=== PATIENT | female | born 1975 | race Caucasian/White ===

== ENCOUNTER 2022-09-11 08:39 | Emergency (ER) | payer OTHER ==
[~2022-09-11] VITALS: Ht 157.5 cm; Wt 93.0 kg
[2022-09-11 08:49] VITALS: BP_SYST 159
--- NOTE | 2022-09-11 09:11 | NUR ---
BROUGHT BACK TO BED #5 AND REPORT GIVEN TO JAMAAL
--- NOTE | 2022-09-11 09:13 | NUR ---
C/C SOb and wheezing x 1 week, patient has Hx of Asthma and is Pre-DM. Denies any other medical Hx. Spo2 98% on RA, no acute distress noted. Wheezing in upper and lower lobes present, Patient states she took her Albuteral and Pro-air this am with no relief.
[2022-09-11] MEDS ORDERED: IPRATROPIUM BROM 0.5 MG/2.5 ML VIAL.NEB (ATROVENT) INH ONE (09:15)
[2022-09-11] MEDS ORDERED: ALBUTEROL SULFATE 0.083% 2.5 MG/3 ML VIAL.NEB INH ONE (09:15)
--- NOTE | 2022-09-11 09:15 | NUR ---
MD Guevara at bedside speaking with patient
[2022-09-11] MEDS ORDERED: predniSONE 20 MG TABLET PO ONE (09:30)
--- NOTE | 2022-09-11 09:30 | NUR ---
RT at bedside
--- NOTE | 2022-09-11 09:34 | NUR ---
EKG at bedside
--- NOTE | 2022-09-11 09:36 | NUR ---
Cxr at bedside
--- NOTE | 2022-09-11 10:11 | NUR ---
Covid and FLU swab collected and sent to lab
--- NOTE | 2022-09-11 10:40 | NUR ---
Patient remains stable in no acute distress and or discomfort.
[2022-09-11] MEDS ORDERED: PRED20TA PO (10:44)
[2022-09-11] MEDS ORDERED: ALBMDI INH (10:44)
[2022-09-11 10:53] VITALS: BP_SYST 123
--- NOTE | 2022-09-11 10:55 | NUR ---
Patient given written and verbal discharge instructions and verbalizes understanding. ER MD discussed with patient the results and treatment provided. Patient in stable condition. ID arm band removed. IV catheter removed intact and dressing applied, no active bleeding. Rx given. Patient educated on pain management and to follow up with PMD. Pain Scale 0/10 Opportunity for questions provided and answered. Medication side effect fact sheet provided.
== END 2022-09-11 10:55 | disposition home or self-care (01) ==
LOC: SED 08:39
DX: J45.901 Unspecified asthma with (acute) exacerbation (principal); R05.9 Cough, unspecified; Z88.1 Allergy status to other antibiotic agents; Z79.899 Other long term (current) drug therapy; Z20.822 Contact with and (suspected) exposure to COVID-19
CPT/HCPCS: 36415; 93005; 71045; 94640; 99285; 87804 ×2; 87426; J7512; J7613

== ENCOUNTER 2022-09-15 16:00 | Emergency (ER) | payer OTHER ==
[~2022-09-15] VITALS: Ht 157.5 cm; Wt 93.0 kg
[~2022-09-15 16:00] MED LIST: ALBMDI INH; PRED20TA PO
[2022-09-15 16:08] VITALS: BP_SYST 137
--- NOTE | 2022-09-15 16:10 | NUR ---
Patient triaged and placed in waiting room. VSS and patient appears in no acute distress at this time. Accompanied by SELF, awaiting available bed, and MD notified of need for MSE.
--- NOTE | 2022-09-15 17:35 | NUR ---
ER DR. BROWN EXAMINING PT IN TRIAGE
--- NOTE | 2022-09-15 17:40 | NUR ---
Placed in room 1. Placed on cardiac nurse specialist, blood pressure machine and pulse oximeter. To gown for exam. Side rails up.
[2022-09-15] MEDS ORDERED: IPRATROPIUM BROM 0.5 MG/2.5 ML VIAL.NEB (ATROVENT) INH ONE (17:45)
[2022-09-15] MEDS ORDERED: ALBUTEROL SULFATE 0.083% 2.5 MG/3 ML VIAL.NEB INH ONE (17:45)
--- NOTE | 2022-09-15 17:45 | NUR ---
RT AT THE BEDSIDE
[2022-09-15] MEDS ORDERED: ZIT250 PO (18:18)
[2022-09-15 18:51] VITALS: BP_SYST 137
--- NOTE | 2022-09-15 18:52 | NUR ---
Patient given written and verbal discharge instructions and verbalizes understanding. ER MD discussed with patient the results and treatment provided. Patient in stable condition. ID arm band removed. Rx of ZITHROMAX given. Patient educated on pain management and to follow up with PMD. Pain Scale 0/10. Opportunity for questions provided and answered. Medication side effect fact sheet provided.
== END 2022-09-15 18:51 | disposition home or self-care (01) ==
LOC: SED 16:00
DX: J45.909 Unspecified asthma, uncomplicated (principal); R05.9 Cough, unspecified; R06.02 Shortness of breath; R51.9 Headache, unspecified; Z88.1 Allergy status to other antibiotic agents; Z79.899 Other long term (current) drug therapy
CPT/HCPCS: 71045; 94640; 99283; J7613

== ENCOUNTER 2022-11-29 09:00 | Outpatient (CLI) | payer OTHER ==
[~2022-11-29 09:00] MED LIST changes: +ZIT250 PO
[2022-11-29 10:26] LABS: BASOPHILS % (AUTO) 0.4 % (0.0-2.0); EOSINOPHILS # (AUTO) 0.4 K/uL (0.0-0.4); EOSINOPHILS % (AUTO) 5.6 % (0.0-4.0); HEMATOCRIT 36.1 % (36-48); HEMOGLOBIN 12.2 g/dL (12.0-16.0); LYMPHOCYTES # (AUTO) 2.6 K/uL (1.0-5.5); LYMPHOCYTES % (AUTO) 36.4 % (20.5-51.5); MEAN CORPUSCULAR HEMOGLOBIN 31 pg (27-31); MEAN CORPUSCULAR HGB CONC 34 % (32-36); MEAN CORPUSCULAR VOLUME 91 fL (79.0-98.0); MONOCYTES # (AUTO) 0.5 K/uL (0.0-1.0); MONOCYTES % (AUTO) 6.4 % (1.7-9.3); NEUTROPHILS # (AUTO) 3.6 K/uL (1.8-7.7); NEUTROPHILS % (AUTO) 51.2 % (40.0-70.0); PLATELET COUNT (AUTO) 340 K/uL (130-430); RED BLOOD CELL COUNT(AUTO) 3.99 MIL/uL (4.2-6.2); RED CELL DISTRIBUTION WIDTH 13.3 % (9.0-15.0); WHITE BLOOD COUNT (AUTO) 7.1 K/uL (4.8-10.8)
[2022-11-29 10:50] LABS: ALBUMIN 3.7 g/dL (3.4-4.8); CALCIUM 9.1 mg/dL (8.4-11.0); CREATININE 0.58 mg/dL (0.55-1.30); THYROID STIMULATING HORMONE 2.31 uIu/mL (0.34-4.82); TOTAL BILIRUBIN 0.2 mg/dL (0.0-1.0)
[2022-11-30 08:06] LABS: T4 (THYROXINE) 7.3 ug/dL (4.5-12.0)
[2022-11-30 12:31] LABS: HEMOGLOBIN A1C 6.2 % (4.8-5.6)
== END 2022-11-29 17:18 | disposition home or self-care (01) ==
LOC: SGI 09:00
PROVIDERS: ATTEND Internal Medicine
DX: Z00.00 Encounter for general adult medical examination without abnormal findings (principal); Z13.21 Encounter for screening for nutritional disorder; J45.909 Unspecified asthma, uncomplicated
CPT/HCPCS: 36415; 80053; 80061; 82306; 83036; 84436; 84443; 85025

== ENCOUNTER 2023-02-27 09:02 | Outpatient (CLI) | payer OTHER ==
[2023-02-27 10:30] LABS: CHOLESTEROL 258 mg/dL (<200); HDL CHOLESTEROL 91 mg/dL (>55); TRIGLYCERIDES 137 mg/dL (30-150)
[2023-02-27 10:37] LABS: HEMATOCRIT 38.6 % (36-48); MEAN CORPUSCULAR HEMOGLOBIN 31 pg (27-31); MEAN CORPUSCULAR HGB CONC 34 % (32-36); MEAN CORPUSCULAR VOLUME 90 fL (79.0-98.0); PLATELET COUNT (AUTO) 343 K/uL (130-430); RED BLOOD CELL COUNT(AUTO) 4.27 MIL/uL (4.2-6.2); RED CELL DISTRIBUTION WIDTH 13.2 % (9.0-15.0); WHITE BLOOD COUNT (AUTO) 9.4 K/uL (4.8-10.8)
== END 2023-02-27 17:17 | disposition home or self-care (01) ==
LOC: SLB 09:02
PROVIDERS: ATTEND Internal Medicine
DX: E78.5 Hyperlipidemia, unspecified (principal); R73.03 Prediabetes
CPT/HCPCS: 36415; 80061; 83037; 83051; 85014; 85048; 85049-TC

== ENCOUNTER 2023-05-26 09:34 | Outpatient (CLI) | payer OTHER ==
[2023-05-26 11:28] LABS: CHOLESTEROL 253 mg/dL (<200); HDL CHOLESTEROL 86 mg/dL (>55); TRIGLYCERIDES 176 mg/dL (30-150)
== END 2023-05-26 19:24 | disposition short-term general hospital (02) ==
LOC: SLB 09:34
PROVIDERS: ATTEND Internal Medicine
DX: E78.5 Hyperlipidemia, unspecified (principal); R73.03 Prediabetes
CPT/HCPCS: 36415; 80061; 83037